=== PATIENT | female | born 1960 | race Caucasian/White ===

== ENCOUNTER 2019-07-03 16:19 | Inpatient (IN) | payer BC ==
[~2019-07-03] VITALS: Ht 175.3 cm; Wt 99.6 kg
[~2019-07-03 16:19] MED LIST: ASPIRIN 32325 MG/TAB PO; COLACE 100100 MG/CAP PO; DUO-KAPS1 CAP PO; FERRATE325 MG PO; NORCO 325 MG-7.1 TAB PO; PEPCID 20MG TAB20 MG PO; REQUIP 1MG T1 MG/TAB PO; ROXICODONE 55 MG/TAB PO; VITAMIN C500 MG PO
[2019-08-21] VITALS (11 sets, daily range): BP systolic 100–154; BP diastolic 42–75; PULSE 52–70; TEMP 97.8–98.1
[2019-08-21] MEDS ORDERED: TOPROL XL 50MG50 MG PO (07:11)
[2019-08-21] MEDS ORDERED: NEURONTIN300 MG/CAP PO (07:11)
[2019-08-21] MEDS ORDERED: LEXAPRO20 MG PO (07:12)
--- NOTE | 2019-08-21 10:36 | NUR ---
Initial visit; Patient thanked Phlebotomy Director for looking in on her, offering prayer and God's blessings.
--- NOTE | 2019-08-21 16:06 | NUR ---
Slubber Frame Changer met with patient to discuss discharge planning. Patient lives alone in [place] and sees Dana Sandy APRN for primary care. Patient obtains medications from [facility] with no difficulties. Patient has a four wheeled walker to utilize for recovery and reports she is normally independent with ADLS. Patient expressed interest in establishing DPOA and wants to designate her daughter, Cynthia (ph#[phone]). Patient states her about a year ago and was her DPOA so she wants to now make sure her daughter is designated. HENRY and RNLouis provided witness signature. SW provided original and copies to patient and placed a copy in patient's chart. Patient states she plans to return home upon discharge with a friend providing transportation. SW to continue to follow as needed.
--- NOTE | 2019-08-21 17:58 | NUR ---
PT UP TO BR VOIDED AND TO RECLINER. [id number].
--- NOTE | 2019-08-21 22:34 | NUR ---
Patient doing well tonight. alert and oriented. c/o moderate pain to L knee. prn zuleika being given q 4 hours. bulky dressing and FELY wrap to L knee CDI and ice applied. SCDs and TEDs on. c/o small stomach ache but denies needs for this at this time. no further needs at this time. will continue to monitor.
--- NOTE | 2019-08-22 02:50 | NUR ---
Patients IV to L hand was burning when flushing. pain not tolerable. IV to L hand discontinued and bandaid applied. 20 G IV started to R wrist on first attempt by this nurse. IV fluids and ABX infusing without issue.
[2019-08-22 04:13] VITALS: BP 152/63; PULSE 70; TEMP 98
[2019-08-22 07:13] LABS: HEMATOCRIT 39.7 % (37.0-47.0); HEMOGLOBIN 12.7 g/dl (12.5-16.0)
[2019-08-22 07:54] VITALS: BP 142/55; PULSE 64; TEMP 97.6
--- NOTE | 2019-08-22 08:00 | NUR ---
PATIENT IS A&O. VSS. PATIENT C/O PAIN IN LLE RATED AT 6-7. GAVE PRN ROXICODONE, TWO TABS WITH AM MEDS. LTK DRESSING IS CD&I WITH BULK ACEWRAP DRESSING. TEDS TO RLE. SCD'S TO BLE. POSITIVE PEDAL PULSES TO BLE. PATIENT EAT/DRINK/VOIDING SUFFICENT AMOUNTS. NO C/O N/V. RIGHT WRIST IV TO INT. HEAD TO TOE ASSESSMENT WNL. NO OTHER NEEDS AT THIS TIME. CALL LIGHT IN REACH.
--- NOTE | 2019-08-22 11:46 | NUR ---
Dial Lathe Operator followed up with patient about PT's recommendation for outpatient PT. Patient states she already has PT set up at the hospital in [place]. No additional needs at this time.
[2019-08-22 12:00] VITALS: BP 137/66; PULSE 68; TEMP 99.9
[2019-08-22 16:51] VITALS: BP 139/61; PULSE 70; TEMP 98.2
--- NOTE | 2019-08-22 20:00 | NUR ---
Report received. 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 Assessment complete. VS stable. A&Ox3. C/O pain due to alex hose. BIlat thigh irritation/indentions/redness. States they are digging in and are to tight. Removed bilat and wrapped with jesus bandages. Denies shortness of breath/nausea/pain. Fresh ice pack applied. SCDs bilat. States she is ready to be discharged. Has been up in room and ambulated. Denies needs. Call light in reach. Will monitor.
[2019-08-22 20:30] VITALS: BP 114/72; PULSE 78; TEMP 98.2
[2019-08-23 00:37] VITALS: BP 129/45; PULSE 72; TEMP 98.3
[2019-08-23 04:53] VITALS: BP 109/51; PULSE 73; TEMP 98.4
[2019-08-23] MEDS ORDERED: ASPI325T6 PO (06:37)
[2019-08-23] MEDS ORDERED: NORCO 325 MG-7.1 TAB PO (06:37)
[2019-08-23] MEDS ORDERED: ROXICODONE 55 MG/TAB PO (06:38)
[2019-08-23 07:27] VITALS: BP 120/55; PULSE 75; TEMP 98.2
--- NOTE | 2019-08-23 08:00 | NUR ---
PATIENT IS A&O. VSS. RATE PAIN IN LLE AT 5/10. PATIENT REQUESTING SOMETHING FOR PAIN BEFORE AM THERAPY. PATIENT SITTING UP IN BEDSIDE CHAIR. PATIENT REPORTS SHE SLEPT WELL LAST NIGHT IN THE RECLINER. PATIENT'S DID NOT LIKE THE BED. LTK DRESSING IS CD&I WITH AQUACEL. ACEWRAP DRESSING APPLIED TO BLE. SCD'S CURRENTLY OFF. POSITIVE PEDAL PULSES TO BLE. PATIENT EAT/DRINK/VOIDING SUFFICIENT AMOUNTS. NO C/O N/V. NO IV SITE. HEAD TO TOE ASSESSMENT WNL. PATIENT PLANNING TO DISCHARGE HOME LATER TODAY. AM MEDS GIVEN WITH BREAKFAST. NO OTHER NEEDS. CALL LIGHT IN REACH.
--- NOTE | 2019-08-23 09:45 | NUR ---
PATIENT SHOWERING WITH OT. SEE OT NOTES.
--- NOTE | 2019-08-23 11:25 | NUR ---
PATIENT DISCHARGING HOME VIA WC TO PERSONAL VEHICLE. PATIENT'S RIDE WAITING DOWN STAIRS CURB SIDE. GAVE DISCHARGE INSTRUCTIONS, PRESCRIPTIONS, AND FOLLOW UP APTS. ANSWERED ALL QUESTIONS/CONCERNS. NO IV SITE. LTK DRESSING WAS CHANGED TO AQUACEL YESTERDAY. PATIENT DISCHARGED WITH PERSONAL BELONGINGS.
== END 2019-08-23 11:30 | disposition home or self-care (01) | DRG 470 ==
LOC: JCC 08-21 06:38
PROVIDERS: ADMIT Orthopaedic Surgery
PROC: 0SRD0J9 Replacement of Left Knee Joint with Synthetic Substitute, Cemented, Open Approach (ICD-10-PCS; principal; 2019-08-21 10:30)
DX: M17.12 Unilateral primary osteoarthritis, left knee (principal); I48.91 Unspecified atrial fibrillation; G47.33 Obstructive sleep apnea (adult) (pediatric); Z88.0 Allergy status to penicillin; Z88.2 Allergy status to sulfonamides; Z96.651 Presence of right artificial knee joint; Z87.891 Personal history of nicotine dependence
CPT/HCPCS: A9284; C1776; J0690; J2250; J2704; J7030